=== PATIENT | female | born 1995 | race Caucasian/White ===

== ENCOUNTER 2021-06-06 02:59 | Emergency (ER) | payer OTHER ==
[2021-06-06 03:52] LABS: BASOPHIL 0.4 % (0-2); HGB 12.6 g/dl (12.5-16.0); LYMPHOCYTE 18.1 % (15-48); MCH 27.6 pg (25.0-31.0); MCHC 33.2 g/dL (32.0-36.0); MCV 83.3 fL (78.0-100.0); MONOCYTE 10.2 % (0-12); MPV 10.2 fL (6.0-9.5); NRBC 0; PLT 333 K/uL (150-400); RBC 4.56 M/uL (4.20-5.40); RDW 13.2 % (11.5-14.0)
[2021-06-06 04:19] LABS: PRO-BNP 41 pg/mL (<125)
[2021-06-06 04:24] LABS: ALBUMIN 3.6 g/dL (3.4-5.0); BILIRUBIN - TOTAL 0.3 mg/dL (0.2-1.0); BUN/CREAT RATIO (CALC) 20.3 RATIO; C-REACTIVE PROTEIN 3.8 mg/dL (<=0.90); CREATININE 0.64 mg/dL (0.51-0.95); GLOBULIN (CALCULATION) 4.7 g/dL; MAGNESIUM 2.3 mg/dL (1.8-2.4); POTASSIUM 3.6 mmol/L (3.5-5.1); TOTAL PROTEIN 8.3 g/dL (6.4-8.2)
[2021-06-06] MEDS ORDERED: VIBRAMYCIN100 MG PO (06:57)
[2021-06-06] MEDS ORDERED: MEDROL 4MG DOSEP4 MG PO (06:57)
[2021-06-06] MEDS ORDERED: VENTOLIN HFA18 GM INH (06:57)
== END 2021-06-06 08:08 | disposition home or self-care (01) ==
LOC: FER 02:59
PROVIDERS: Emergency Medicine
DX: J18.9 Pneumonia, unspecified organism (principal); Z20.822 Contact with and (suspected) exposure to COVID-19
CPT/HCPCS: 36415; 71250; 80053; 82728; 83605; 83735; 83880; 84484; 84703; 85025; 86140; J1956; U0002